=== PATIENT | male | born 1960 | race Caucasian/White ===

== ENCOUNTER 2022-01-23 06:51 | Observation (INO) ==
--- NOTE | 2022-01-18 10:35 | Anesthesiology Consultation ---
Date of Service January 18, 2022 Assessment & Plan (1) Encounter for pre-operative examination: COVID screening: Per assessment on 01/18: No known COVID-19 positive contacts or current COVID-19 related symptoms. Travel screen negative. Surgeon arranging preop COVID testing. Awaiting results. Chart Review Chart Review: Acceptable Risk for Surgery and Patient NOT seen in Pre Admission Testing History Surgery Operation Date: 01/23/22 09:50 Proposed Procedures p Left Laparoscopic Hand Assisted Nephrectomy - Brennan Benz MD Height/Weight Height: 5 ft 11 in Weight: 136.078 kg Allergies Allergy/AdvReac Type Severity Reaction Status Date / Time No Known Allergies Allergy Verified 01/18/22 10:04 Medications Home Medications Medication Instructions Recorded Confirmed Last Taken albuterol sulfate 90 mcg/actuation 2 puff INHALATION Q6H PRN 01/08/22 01/18/22 Unknown aerosol inhaler atorvastatin 10 mg tablet 10 mg PO QAM 01/08/22 01/18/22 Unknown calcium carbonate 500 mg calcium 500 mg PO QAM 01/08/22 01/18/22 Unknown (1,250 mg) tablet fluticasone propionate 50 1 spray INTRANASAL DAILY 01/08/22 01/18/22 Unknown mcg/actuation nasal spray,suspension (Allergy Relief (fluticasone)) lisinopril 20 mg tablet 20 mg PO QAM 01/08/22 01/18/22 Unknown Past Medical History Medical History (Updated 01/18/22 @ 10:34 by Radha Severino) Arthritis Asthma mild High blood pressure Hyperlipidemia Morbid obesity Renal mass Past Family History Family History Family/Other Diabetes Hypertension Father Kidney stones Lymphoma Other Cancer Past Surgical History Surgical History History of appendectomy History of bilateral cataract extraction Hx of umbilical hernia repair Social History Smoking Status: Never smoker Do You Dip or Chew Tobacco: No Hx Alcohol Use: No Hx Substance Use: No substance use type: does not use Lab Results Anesthesia Preop Results Results Anesthesia Widget: WBC 7.66 K/uL (4.8-10.8) 01/08/22 Hgb 15.9 g/dL (14.0-18.0) 01/08/22 Hct 46.7 % (42-52) 01/08/22 Plt 264 K/uL (130-400) 01/08/22 Na 137 mmol/L (136-145) 01/08/22 K 3.8 mmol/L (3.5-5.1) 01/08/22 Cl 104 mmol/L (98-107) 01/08/22 CO2 26 mmol/L (21-32) 01/08/22 BUN 15 mg/dl (6-23) 01/08/22 Creat 0.87 mg/dl (0.6-1.4) 01/08/22 Glucose Level 99 mg/dl (70-99(Fasting)) 01/08/22 Testing Laboratory Results 01/08/22 UA negative (no growth on culture) Electrocardiogram Date: 01/08/22 Findings: + NSR @ (82) Chest X-Ray Date: 11/17/21 Findings: + NAD
[~2022-01-23 06:51] MED LIST: DEXAMETHASONE SOD INJ 4 MG/ML VIAL ONE; LACTATED RINGER'S 1,000 ML IV SCH; LIDOCAINE 2% 2 ML VIAL/AMP(20MG/ML) INFIL ONE; MIDAZOLAM HCL 1 MG/ML 2ML VIAL ONE; ONDANSETRON INJ 2 MG/ML 2 ML VIAL ONE; PROPOFOL IV EMULSION 10 MG/ML 20 ML VIAL IV ONE; ROCURONIUM BROMIDE 10 MG/ML 5 ML VIAL IV ONE; fentaNYL citrate 100 MCG/2 ML VIAL ONE
[2022-01-23] MEDS ORDERED: BUPIVACAINE 0.5 % 5 MG/1 ML MPF 30ML VIAL ONE ×2 (07:00→09:14)
[2022-01-23] MEDS ORDERED: ACETAMINOPHEN 1000 MG/100 ML IV IV ONE (07:03)
--- NOTE | 2022-01-23 07:27 | History & Physical Bridge Note ---
Date of Service January 23, 2022 History & Physical Bridge Note I have examined the patient, reviewed the History & Physical and in the interval since the performance of the History & Physical I have noted the following changes of clinical significance: no changes noted
[2022-01-23] MEDS ORDERED: ATROPINE SULFATE 0.1 MG/ML 10ML SYR IV PRN (08:06)
[2022-01-23] MEDS ORDERED: ePHEDrine sulfate 50 MG/ML AMP IV PRN (08:06)
[2022-01-23] MEDS ORDERED: ONDANSETRON INJ 2 MG/ML 2 ML VIAL IV PRN ×2 (08:06→12:08)
[2022-01-23] MEDS ORDERED: KETAMINE 50 MG/5 ML SYRINGE ONE (09:04)
[2022-01-23] MEDS ORDERED: PHENYLEPHRINE HCL 10 MG/ML VIAL ONE (09:29)
[2022-01-23] MEDS ORDERED: ePHEDrine sulfate 50 MG/ML AMP ONE (09:29)
[2022-01-23] MEDS ORDERED: ROCURONIUM BROMIDE 10 MG/ML 5 ML VIAL IV ONE ×3 (09:29)
[2022-01-23] MEDS ORDERED: fentaNYL citrate 100 MCG/2 ML VIAL ONE (09:42)
[2022-01-23] MEDS ORDERED: SODIUM CHLORIDE 0.9% INJ 10 ML VIAL ONE (09:52)
[2022-01-23] MEDS ORDERED: HYDROmorphone INJ 2 MG/ML SYR/VIAL ONE (09:52)
[2022-01-23] MEDS ORDERED: FLOSEAL HEMOSTATIC MATRIX 10ML TOP ONE (10:03)
[2022-01-23] MEDS ORDERED: ONDANSETRON INJ 2 MG/ML 2 ML VIAL ONE (10:18)
[2022-01-23] MEDS ORDERED: NEOSTIGMINE METHYLSULFATE 1 MG/ML 10ML VIAL ONE (10:18)
[2022-01-23] MEDS ORDERED: GLYCOPYRROLATE 0.2 MG/ML VIAL ONE (10:18)
--- NOTE | 2022-01-23 10:53 | Operative Report ---
PG Post Operative Report Pre & Post Diagnosis Operation Date: 01/23/22 08:35 Pre-Op Diagnosis: Renal Mass Post-Op Diagnosis: Renal Mass I identified the patient and participated in the time-out.: Yes Procedure Operation Date: 01/23/22 08:35 Actual Procedures p Left Hand Assisted Laparoscopic Nephrectomy(Left) - Brennan Benz MD Surgeon Fred Benz MD Business Intelligence Analyst Joyce Herrera Estimated Blood Loss 50 Findings Consistent with Post-Op Diagnosis Specimens Left kidney Description of Procedure To begin the case the patient received general anesthesia and appropriate antibiotics and was then placed in a [id number] left side up lateral decubitus position with the bed flexed. He was padded and braced appropriately. Following sterile prep I made an incision lateral to the rectus border in the Perez style. This was slightly higher than a traditional Perez incision and attempted to position this over the lower pole of the kidney. We carried this dissection through the superficial tissues and incised the external oblique fascia. We then opened this and incised the internal oblique fascia. I ulti mately opened the transversalis and peritoneum sharply and performed a finger sweep confirming that there were no adhesions. I then continued my peritoneal incision to accommodate a hand port. The GelPort was placed and the abdomen insufflated by placing a 12 mm trocar through the hand port. We then performed a laparoscopic inspection and confirmed that the anterior abdominal wall was clear of adhesions and 2 additional 12 mm ports were placed approximately 5 cm lateral to the rectus border and 2 cm below the costal margin followed by a second port approximately 8 cm inferior to that. I then began the laparoscopic portion of the case utilizing a harmonic scalpel to incise the white line of Toldt begin medializing the colon. This dissection was carried superior to the kidney and inferior to an area just below the lower pole. I mobilized this as far medially as possible and suspected I was nearing the hilar structures before stopping that portion of the dissection. I turned my attention to the superior pole and dissected between the spleen and the kidney beginning to incise that line of tissue. I then turned my attention to the lower pole and completed my dissection down until identified the gonadal vein. After identifying the gonadal vein I graded a window lateral to it and onto the psoas muscle. I utilized this to elevate the kidney and stretch the hilar structures. We were able to then identify the lower pole of the renal vein itself. There is an adrenal vein visualized at the superior margin. I could palpate the renal artery immediately behind the renal vein. I created a window superior to the vascular structures and passed a staple load to control the vascular structures in a solitary load. I then passed a second staple load to separate the area between the adrenal and the upper pole of the kidney. And then utilized the harmonic scalpel to complete that dissection around the superior pole. At the extreme inferior pole I dissected down to the ureter and utilized a staple load to control the ureter and the distal aspect of Gerota's fascia. The remaining attachments were freed with a combination of harmonic scalpel and blunt dissection. Hemostasis was excellent. I did place a bit of Floseal in the renal fossa. The specimen was extracted through the hand port. Closure was accomplished in multiple layers with the first layer being the per itoneum and transversalis closed with 0 Vicryl followed by closure of the internal oblique with a running 0 Vicryl and external oblique with a running 0 Vicryl. Lisa's fascia was reapproximated with 0 Vicryl before closure of the skin incision with a 4-0 Monocryl. The 2 lap ports were closed with 4-0 Monocryl. Half percent Marcaine was utilized infiltrate all of the incisions. Dermabond was placed over the incisions. He was reversed of anesthesia and taken to the recovery room in stable condition. There were no complications. Joyce Herrera was present and scrubbed assisting for all portions of the case. I attest to the content of the Intraoperative Record and any orders documented therein. Any exceptions are noted below.
[2022-01-23 11:16] LABS: Basophils # (auto) 0.02 K/uL (0-0.2); Basophils % (auto) 0.2 %; Eosinophils # (auto) 0.17 K/uL (0-0.5); Eosinophils % (auto) 1.3 %; Hematocrit (blood only) 46.2 % (42-52); Hemoglobin 15.3 g/dL (14.0-18.0); Immature Granulocytes # (auto) 0.02 K/uL (0.00-0.02); Immature Granulocytes % (auto) 0.2 %; Mean Corpuscular Hemoglobin 30.8 pg (25-34); Mean Platelet Volume 9.4 fL (7.4-10.4); Monocytes # (auto) 0.33 K/uL (0.11-0.59); Monocytes % (auto) 2.5 %; Neutrophils # (auto) 11.11 K/uL (1.4-6.5); Neutrophils % (auto) 85.8 %; Platelet Count 260 K/uL (130-400); RDW Coefficient of Variation 12.5 % (11.5-14.5); RDW Standard Deviation 42.4 fL (36.4-46.3); Red Blood Count 4.97 M/uL (4.7-6.1); White Blood Count 12.95 K/uL (4.8-10.8)
[2022-01-23] MEDS: fentaNYL citrate 100 MCG/2 ML VIAL IV PRN ×2 (11:25→11:30)
[2022-01-23 11:30] LABS: Mean Corpuscular Hgb Conc 33.1 g/dL (32-36)
[2022-01-23 11:38] LABS: BUN Creatinine Ratio 12.3 (10-20); Calcium 8.7 mg/dl (8.5-10.1); Creatinine Clr Calc Pharmacy 106.5 ml/min; Est GFR (African American) 88.6 ml/min; Est GFR (Non-African American) 76.4 ml/min; Potassium 4.5 mmol/L (3.5-5.1)
[2022-01-23] MEDS ORDERED: MoRPHine SULFATE 2 MG/ML CARP IV PRN ×2 (12:08)
[2022-01-23] MEDS ORDERED: ALBUTEROL HFA 8 GM INHALER INH PRN (12:08)
[2022-01-23] MEDS: LACTATED RINGER'S 1,000 ML IV SCH ×2 (12:12→23:07)
--- NOTE | 2022-01-23 14:18 | Anesthesiology Progress Note ---
Date of Service January 23, 2022 Anesthesia Post Procedure Vital Signs Vital Signs: Temp Pulse Pulse Resp BP BP Pulse Ox 01/23/22 14:00 36.6 C 83 18 148/104 H 92 01/23/22 13:06 36.6 C 75 18 149/95 H 91 01/23/22 12:32 36.5 C 73 18 146/96 H 92 01/23/22 12:09 36.4 C L 74 18 148/98 H 92 01/23/22 11:45 36.4 C L 69 12 156/94 H 92 01/23/22 11:35 72 15 140/92 93 01/23/22 11:25 69 14 155/117 H 92 01/23/22 11:15 74 10 L 152/107 H 92 01/23/22 11:05 78 16 148/110 H 90 01/23/22 10:56 36.1 C L 79 16 162/118 H 91 01/23/22 07:09 37 C 81 20 132/92 96 Pain Intensity Back: Pain Intensity: 3 Left Flank: Pain Intensity: 5 Transfer of Care Handoff Completed per policy Notes Mental Status: alert / awake / arousable Patient Amnestic to Procedure: Yes Nausea / Vomiting: adequately controlled Pain: adequately controlled Airway Patency, RR, SpO2: stable & adequate BP & HR: stable & adequate Hydration State: stable & adequate Anesthetic Complications: no major complications apparent
[2022-01-23] MEDS: oxyCODONE HCL IR 5 MG TAB (IMMEDIATE RELEASE) PO PRN ×2 (15:24→19:56)
[2022-01-23] MEDS: ceFAZolin 2000MG 2,000 MG/15 ML SYR IV SCH (15:25)
[2022-01-23] MEDS: DOCUSATE SODIUM 100 MG CAP PO SCH (19:56)
[2022-01-23] MEDS: HEPARIN SOD 5,000 UNIT/0.5 ML VIAL SQ SCH (19:56)
[2022-01-24] MEDS: ceFAZolin 2000MG 2,000 MG/15 ML SYR IV SCH (01:00)
[2022-01-24] MEDS: oxyCODONE HCL IR 5 MG TAB (IMMEDIATE RELEASE) PO PRN ×3 (06:36→19:43)
[2022-01-24 07:52] LABS: Calcium 8.7 mg/dl (8.5-10.1); Creatinine Clr Calc Pharmacy 84.9 ml/min; Est GFR (African American) 67.3 ml/min; Est GFR (Non-African American) 58.1 ml/min; Potassium 4.7 mmol/L (3.5-5.1)
[2022-01-24] MEDS: LACTATED RINGER'S 1,000 ML IV SCH ×2 (07:54→16:39)
[2022-01-24] MEDS: HEPARIN SOD 5,000 UNIT/0.5 ML VIAL SQ SCH ×2 (07:55→19:45)
[2022-01-24] MEDS: ATORVASTATIN 10 MG TAB PO SCH (07:55)
[2022-01-24] MEDS: lisinopril 20 MG TAB PO SCH (07:55)
[2022-01-24] MEDS: DOCUSATE SODIUM 100 MG CAP PO SCH ×2 (07:55→19:44)
[2022-01-24 08:54] LABS: Basophils # (auto) 0.01 K/uL (0-0.2); Basophils % (auto) 0.1 %; Hemoglobin 14.7 g/dL (14.0-18.0); Immature Granulocytes # (auto) 0.05 K/uL (0.00-0.02); Immature Granulocytes % (auto) 0.3 %; Lymphocytes % (auto) 7.4 %; Mean Corpuscular Hemoglobin 30.4 pg (25-34); Mean Corpuscular Hgb Conc 33.4 g/dL (32-36); Mean Corpuscular Volume 91.1 fL (80-100); Mean Platelet Volume 9.4 fL (7.4-10.4); Monocytes # (auto) 1.33 K/uL (0.11-0.59); Monocytes % (auto) 7.5 %; Neutrophils # (auto) 14.97 K/uL (1.4-6.5); Neutrophils % (auto) 84.7 %; Platelet Count 283 K/uL (130-400); RDW Coefficient of Variation 12.6 % (11.5-14.5); RDW Standard Deviation 42.1 fL (36.4-46.3); Red Blood Count 4.83 M/uL (4.7-6.1); White Blood Count 17.66 K/uL (4.8-10.8)
--- NOTE | 2022-01-24 13:20 | Urology Progress Note ---
Date of Service January 24, 2022 Assessment & Plan (1) Renal mass: Plan: Postoperative day #1 status post left radical nephrectomy Recovery on pace Creatinine 1.3 Hemoglobin stable Burch out Ambulate Advance diet Possible discharge home later today or tomorrow Admission and Anticipated Discharge Date Admission Date: January 23, 2022 Subjective Doing okay overall Has not ambulated yet Pain well controlled Urine clear Physical Exam Physical Exam: Incisions appropriate No erythema, no severe tenderness Urine clear Results & Data ([facility]) Vital Signs (Past 12 Hours) Vital Signs Temp Pulse Pulse Resp BP BP Pulse Ox 01/24/22 11:21 36.5 C 72 16 145/84 H 92 01/24/22 07:34 36.7 C 86 18 164/97 H 95 01/24/22 02:57 36.9 C 105 H 20 151/86 H 96 PG Care Time/CCT Total # of Minutes Spent Total Time Spent with Patient: Total time spent is greater than 50% in coordination of care (as documented) at patient's floor/unit and/or counseling patient: Coding Level of Care Code 33735 Subseq Hosp Care Lvl 2 Diagnoses Renal mass N28.89
[2022-01-24] MEDS: ACETAMINOPHEN 325 MG TAB PO PRN ×2 (16:44→22:33)
[2022-01-25] MEDS: LACTATED RINGER'S 1,000 ML IV SCH (01:41)
[2022-01-25 08:15] LABS: Basophils # (auto) 0.02 K/uL (0-0.2); Basophils % (auto) 0.2 %; Eosinophils # (auto) 0.04 K/uL (0-0.5); Eosinophils % (auto) 0.3 %; Hematocrit (blood only) 43.5 % (42-52); Hemoglobin 14.3 g/dL (14.0-18.0); Immature Granulocytes # (auto) 0.04 K/uL (0.00-0.02); Immature Granulocytes % (auto) 0.3 %; Mean Corpuscular Hemoglobin 30.6 pg (25-34); Mean Corpuscular Hgb Conc 32.9 g/dL (32-36); Mean Corpuscular Volume 92.9 fL (80-100); Mean Platelet Volume 9.4 fL (7.4-10.4); Monocytes # (auto) 1.35 K/uL (0.11-0.59); Monocytes % (auto) 11.1 %; Neutrophils % (auto) 74.1 %; Platelet Count 242 K/uL (130-400); RDW Standard Deviation 44.2 fL (36.4-46.3); Red Blood Count 4.68 M/uL (4.7-6.1); White Blood Count 12.15 K/uL (4.8-10.8)
[2022-01-25] MEDS: HEPARIN SOD 5,000 UNIT/0.5 ML VIAL SQ SCH (08:35)
[2022-01-25] MEDS: DOCUSATE SODIUM 100 MG CAP PO SCH (08:35)
[2022-01-25] MEDS: lisinopril 20 MG TAB PO SCH (08:35)
[2022-01-25] MEDS: ATORVASTATIN 10 MG TAB PO SCH (08:35)
[2022-01-25 08:47] LABS: BUN Creatinine Ratio 14.9 (10-20); Calcium 8.9 mg/dl (8.5-10.1); Creatinine Clr Calc Pharmacy 84.3 ml/min; Est GFR (African American) 66.7 ml/min; Est GFR (Non-African American) 57.6 ml/min; Potassium 4.2 mmol/L (3.5-5.1)
--- NOTE | 2022-01-25 10:23 | Urology Progress Note ---
Date of Service January 25, 2022 Assessment & Plan (1) Renal mass: Plan: s/p left nephrectomy for suspected RCC - plan for d/c home today - labs stable, doing well Admission and Anticipated Discharge Date Admission Date: January 23, 2022 Subjective doing great ambulatory tolerating a diet Physical Exam Physical Exam: incisions ok no erythema abd soft Results & Data ([facility]) Vital Signs (Past 12 Hours) Vital Signs Temp Pulse Resp BP Pulse Ox 01/25/22 07:41 36.9 C 84 18 144/92 H 94 01/24/22 23:00 36.6 C 87 16 142/84 H 93 PG Care Time/CCT Total # of Minutes Spent Total Time Spent with Patient: Total time spent is greater than 50% in coordination of care (as documented) at patient's floor/unit and/or counseling patient: Coding Level of Care Code 49738 Subseq Hosp Care Lvl 2 Diagnoses Renal mass N28.89
--- NOTE | 2022-01-31 15:46 | Discharge Summary ---
Date of Service January 31, 2022 Admission HPI Per Admitting Provider 61yo M with a left renal mass who presented for left nephrectomy Admission Exam Per Admitting Provider Large abdomen Constitutional well developed and well nourished Neck neck nontender Respiratory normal respiratory effort; no respiratory distress and does not use accessory muscles Cardiovascular Rate/Rhythm: regular rate Vessels: radial pulses present Extremities: no edema Gastrointestinal (Abdomen) Inspection/Auscultation: abdomen normal to inspection (Supraumbilical scar) Percussion/Palpation: abdomen soft; abdomen nontender and no guarding Musculoskeletal Head/Neck/Chest: normocephalic and head atraumatic Extremities: extremities normal to inspection Skin no rashes and no lesions Trauma: no evidence of skin trauma Neurologic awake; not obtunded Speech / Cognition: normal speech Motor/Sensory: no tremor Psychiatric Orientation: alert and oriented x 3 Genitourinary no CVA tenderness Lymphatic no lymphadenopathy Principal Diagnosis Renal Mass Discharge Exam Physical Exam: incisions ok no erythema abd soft Discharge Data Allergies Allergy/AdvReac Type Severity Reaction Status Date / Time No Known Allergies Allergy Verified 01/23/22 07:06 Procedures Performed Operation Date: 01/23/22 08:35 Actual Procedures p Left Hand Assisted Laparoscopic Nephrectomy(Left) - Fred Benz MD Hospital Course (1) Renal mass: 61yo M s/p Left Hand Assisted Laparoscopic Nephrectomy - Tolerated procedure very well. - No acute issues postoperatively. - Labs stable. - Minimal pain. - Tolerated diet. - Ambulated without issue. - Passed a voiding trial on the morning of POD#1. - Discharged home in stable condition on POD#2. Total Time Total Time Spent Total Time Spent (In Minutes): 15 Discharge Plan Discharge Items Patient Disposition: Home - Self-Care Reason For Visit: post op Discharge Diagnosis: Renal mass Activity: Per Instructions section Lifting: No more than 25 pounds Bathing Comment: Ok to shower. No tub baths or soaks. Sexual Activity: Wait until after follow-up appointment Exercise/Sports: Wait until after follow-up appointment Driving/Machine Use: Do not drive if taking prescription pain medication. Non-emergency contact: Surgeon and Urologist Call non-emergency contact if: you have any medication questions, your pain is not controlled, your pain is worsening, you have a fever, your wound has increased redness, your wound has increased drainage and your wound pain has increased Follow-up/Referrals: Fred Benz MD [Physician] - 02/14/22 8:45 am Adrian Mars [Primary Care Provider] - Diet: Regular Addtl Attending Provider Instructions: Please take all medications as prescribed and keep all follow-ups as scheduled. Please call our office at [phone] with any questions, concerns or need to reschedule appointments for any reason. We are happy to assist you. Recovering at home: We recommend having someone with you for the first few days after surgery to help care for you. It is okay to shower. Please avoid swimming, bathing or using hot tub until incisions are well healed. Avoid driving until you are not requiring pain medication any further. Walk at least a few times a day. Increase your distance, as you feel able. Stairs in your home are okay. Please avoid strenuous or sexual activity until your follow-up. We recommend using stool softener (i.e. Colace) to prevent constipation and straining, especially the first two weeks post operatively. Call [facility] at [phone] if you experience: Chest pain or trouble breathing (call [phone] or go to the hospital). Fever of 101F or higher. Symptoms of infection at incision site, including redness or swelling, warmth, or bad-smelling drainage. Pain that is not controlled with medicines. Difficulty with urination or unable to urinate. Pending Studies at Discharge: Yes Stand-Alone Forms: [employer], Smoking Cessation Medications and DC Order Prescriptions: New oxycodone-acetaminophen [Percocet] 5-325 mg tablet 1 tab PO Q8H PRN (Reason: pain) Qty: 7 RF: 0 docusate sodium [Colace] 100 mg capsule 100 mg PO BID Qty: 30 RF: 0 Continued albuterol sulfate 90 mcg/actuation HFA aerosol inhaler 2 puff inhalation Q6H PRN (Reason: sob) RF: 0 atorvastatin 10 mg tablet 10 mg PO QAM RF: 0 calcium carbonate 500 mg calcium (1,250 mg) tablet 500 mg PO QAM RF: 0 fluticasone propionate [Allergy Relief (fluticasone)] 50 mcg/actuation spray,suspension 1 spray intranasal DAILY RF: 0 lisinopril 20 mg tablet 20 mg PO QAM RF: 0 diphenhydramine HCl [[place] Teresa-[place] Plus Allergy] 25 mg Tablet 25 mg PO HS PRN (Reason: Allergy Symptoms) RF: 0 Discharge Orders: Discharge Order (Routine); Ordered 01/25/22 Ordered By: Joyce Herrera Admission Data Admit Date/Time: 01/23/22 10:49 Attending Provider: Fred Benz Admit Provider: Fred Benz Primary Care Provider: Adrian Mars Other Interventions: Discharge Summary Assessment (RN) Last Done: 01/25/22 11:27 Coding Level of Care Code D/C DAY MANAGEMENT <30 MINS Diagnoses Renal mass N28.89
--- NOTE | 2022-02-01 07:37 | Coding Query ---
PATHOLOGY To promote full compliance with coding requirements relating to patient care, physician participation is requested in all cases of auto body repairman uncertainty. Please assist us with the question(s) below: Please review the Pathology report and please document any relevant diagnosis(es) below: Diagnosis(es): renal cell carcinoma (clear cell) Thank you Oleg GUZMAN [facility]
== END 2022-01-25 12:53 | disposition home or self-care (01) ==
LOC: ASU 06:51 → INTOOBSV 10:49 → 3W 10:49